=== PATIENT | female | born 1935 | race Caucasian/White ===

== ENCOUNTER 2016-08-05 10:25 | Inpatient (IN) | payer MEDICARE, OTHER ==
[2016-08-05] VITALS (8 sets, daily range): BP systolic 116–144; BP diastolic 59–75; PULSE 56–65; RESP 12–19; TEMP 97.7–98.8; O2SAT 95–98
[~2016-08-05] VITALS: Ht 157.5 cm; Wt 57.2 kg
[~2016-08-05 10:25] MED LIST: AMLO10 PO; ARIC5TAB PO; ASPI325T PO; DONE5TAB7 PO; LIPI80TA PO; LORA-373 PO; LORA1TAB12 PO; LOSA100T PO; METF500 PO; PLAV75TA29 PO; REME15TA PO; SERO100T PO; ZOLO50TA PO
--- NOTE | 2016-08-05 10:46 | PD ---
HPI Chief Complaint: Fall Time Seen by Provider: 10:39 Travel History International Travel<30 days: No Contact w/Intl Traveler<30days: No Traveled to known affect area: No History of Present Illness HPI This is a 80-year-old female who has a history of dementia who was found by her snf staff on the floor at 3 AM. When they woke up this morning she had a large hematoma involving the left side of her face and was reporting a headache and swelling around her eye, constant, moderate severity. [facility] checked her blood sugar and it was 38. Patient was given an amp of D50 in route. She takes metformin and also gets Lantus in the evenings. She denies any other injuries. She is on Plavix. PFSH Past Medical History Arthritis: Yes Anxiety: Yes Depression: Yes Heart Rhythm Problems: No Cancer: No Cardiovascular Problems: No High Cholesterol: No Chemotherapy: No Chest Pain: No Congestive Heart Failure: No Diabetes: No Endocrine: No Genitourinary: No Headaches: Yes Immune Disorder: No Musculoskeletal: Yes (patient stated she sprained her left ankle at a fire drill at the facility ) Neurologic: No Psychiatric: Yes (Dementia with Agitation) Reproductive: No Respiratory: No Radiation Therapy: No Seizures: Yes Sickle Cell Disease: No Past Surgical History Abdominal Surgery: Yes Arteriovenous Shunt: No Cardiac Surgery: No Ear Surgery: No Endocrine Surgery: No Eye Surgery: No Genitourinary Surgery: No Gynecologic Surgery: No Insulin Pump: No Joint Replacement: No Oral Surgery: No Pacemaker: No Thoracic Surgery: No Social History Tobacco Use: No Substance Use: No Allergies-Medications (Allergen,Severity, Reaction): Coded Allergies: No Known Allergies (Unverified , 02/15/16) Reported Meds & Prescriptions Reported Meds & Active Scripts Active Glucophage (Metformin HCl) 500 Mg Tab 1,000 Mg PO BIDPC 30 Days Norvasc (Amlodipine Besylate) 10 Mg Tab 10 Mg PO DAILY 30 Days Zoloft (Sertraline HCl) 50 Mg Tab 50 Mg PO BID 14 Days Seroquel (Quetiapine Fumarate) 100 Mg Tab 50 Mg PO HS 14 Days Reported Prochlorperazine Maleate 10 Mg Tab 10 Mg PO Q6H PRN Tylenol Extra Strength (Acetaminophen) 500 Mg Tab 500 Mg PO QID Vitamin B-12 (Cyanocobalamin) 1,000 Mcg Tab 1,000 Mcg PO DAILY Lantus Inj (Insulin Glargine) 1,000 Unit/10 Ml Vial 35 Units SQ DAILY Atorvastatin (Atorvastatin Calcium) 20 Mg Tab 20 Mg PO HS Losartan (Losartan Potassium) 100 Mg Tab 100 Mg PO DAILY Lorazepam 0.5 Mg Tab 0.5 Mg PO BID Donepezil 5 Mg Tab 5 Mg PO HS Plavix (Clopidogrel Bisulfate) 75 Mg Tab 75 Mg PO DAILY Aspirin 325 Mg Tab 325 Mg PO DAILY Review of Systems Except as stated in HPI: all other systems reviewed are Neg Physical Exam Narrative GENERAL:Well appearing, no acute distress SKIN: Ecchymoses around the left eye HEAD: Hematoma involving the left forehead extending down to the supraorbital rim EYES: Pupils equal and round. No injection or drainage. ENT: Moist mucous membranes NECK: Trachea midline. No cervical spine tenderness. CARDIOVASCULAR: Regular rate and rhythm. No murmur appreciated. RESPIRATORY: Clear to auscultation. Breath sounds equal bilaterally. GASTROINTESTINAL: Abdomen soft, non-tender, nondistended. MUSCULOSKELETAL: No obvious deformities. NEUROLOGICAL: Awake and alert. No obvious cranial nerve deficits. No dysarthria or aphasia. PSYCHIATRIC: Appropriate mood and affect; insight and judgment normal. Data Data Last Documented VS Vital Signs Date Time Temp Pulse Resp B/P Pulse Ox O2 Delivery O2 Flow Rate FiO2 08/05/16 10:35 98.7 64 15 136/[address] Brain W/O Iv Contrast(Rout) (08/05/16 ) Complete Blood Count With Diff (08/05/16 10:44) Basic Metabolic Panel (Bmp) (08/05/16 10:44) Ct Facial Bones W/O Iv Cont (08/05/16 ) Ct Cerv Spine W/O Contrast (08/05/16 ) Admit Order (Ed Use Only) (08/05/16 12:49) Labs Laboratory Tests Test 08/05/16 10:30 White Blood Count 6.7 TH/MM3 Red Blood Count 4.06 MIL/MM3 Hemoglobin 12.6 GM/DL Hematocrit 36.9 % Mean Corpuscular Volume 91.0 FL Mean Corpuscular Hemoglobin 31.1 PG Mean Corpuscular Hemoglobin 34.1 % Concent Red Cell Distribution Width 14.0 % Platelet Count 168 TH/MM3 Mean Platelet Volume 8.7 FL Neutrophils (%) (Auto) 70.9 % Lymphocytes (%) (Auto) 22.8 % Monocytes (%) (Auto) 4.7 % Eosinophils (%) (Auto) 1.5 % Basophils (%) (Auto) 0.1 % Neutrophils # (Auto) 4.7 TH/MM3 Lymphocytes # (Auto) 1.5 TH/MM3 Monocytes # (Auto) 0.3 TH/MM3 Eosinophils # (Auto) 0.1 TH/MM3 Basophils # (Auto) 0.0 TH/MM3 CBC Comment DIFF FINAL Differential Comment Sodium Level 141 MEQ/L Potassium Level 3.7 MEQ/L Chloride Level 104 MEQ/L Carbon Dioxide Level 26.1 MEQ/L Anion Gap 11 MEQ/L Blood Urea Nitrogen 16 MG/DL Creatinine 0.85 MG/DL Estimat Glomerular Filtration 65 ML/MIN Rate Random Glucose 183 MG/DL Calcium Level 8.7 MG/DL MDM Medical Decision Making Medical Screen Exam Complete: Yes Emergency Medical Condition: Yes Interpretation(s) Afebrile, no tachycardia, normotensive No leukocytosis Electrolytes are reassuring Last [address] 08/05/16 Signed Impressions: Service Date/Time: Friday, August 05, 2016 11:26 - CONCLUSION: 1. Left temporal and frontal soft tissue hematoma. No fractures. Toan Jaime Jr., MD Head CT 08/05/16 Signed Impressions: Service Date/Time: Friday, August 05, 2016 11:24 - CONCLUSION: 1. Focal acute, probable posttraumatic, subarachnoid hemorrhage within the right frontal sulci without midline shift. 2. 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 3. Mild periventricular and subcortical white matter small vessel ischemic changes bilaterally. 4. Old right basal ganglia lacunar infarct. 5. Large left frontal subgaleal hematoma. Tyler Evans MD Cervical Spine CT 08/05/16 Signed Impressions: Service Date/Time: Friday, August 05, 2016 12:10 - CONCLUSION: 1. No acute abnormality. 2. Degenerative changes as detailed above. 3. Carotid artery atherosclerotic calcifications. Toan Jaime Jr., MD Differential Diagnosis Subarachnoid hemorrhage, subdural hematoma, epidural hematoma, cervical spine fracture, concussion, orbital floor fracture Narrative Course This is a 80-year-old female who presents to the emergency department having been found on the floor at her snf with a significant hematoma around her left eye. Patient is on Plavix and aspirin. She was placed on a monitor and an IV was established. Labs are obtained which are reassuring. CT the head demonstrates a small area of subarachnoid hemorrhage which is likely traumatic. She appears to be at her neurologic baseline. She did drop her blood sugar on route to the emergency department and was given D50 prior to arrival. She did not drop her blood sugar any further in the ER. I spoke to Dr. Estrada who wanted the patient admitted to the picker machine operator. Director [employer] requested the patient be admitted to the trauma service. Patient will be admitted for further management. Critical Care Narrative Aggregate critical care time was 35 minutes. Time to perform other separately billable procedures was not included in the critical care time. My time did not include minutes spent treating any other patients simultaneously or on activities that did not directly contribute to the patient's treatment. The services I provided to this patient were to treat and/or prevent clinically significant deterioration that could result in: Disability, I provided critical care services requiring my management, as noted below: Chart data review, documentation time, medication orders and management, vital sign assessments/reviewing monitor data, ordering and reviewing lab tests, ordering and interpreting/reviewing x-rays and diagnostic studies, care of the patient and discussion of the patient with the admitting physicians. Physician Communication Physician Communication Discussed with Dr. Holt, and Dr. Estrada Diagnosis Primary Impression: Subarachnoid hemorrhage Admitting Information Admitting Physician Requests: Admit Anahy Arita MD August 05, 2016 10:46
[2016-08-05 11:07] LABS: AUTOMATED NEUTROPHIL # 4.7 TH/MM3 (1.8-7.7); BASOPHIL % 0.1 % (0.0-2.0); EOSINOPHIL # 0.1 TH/MM3 (0-0.4); EOSINOPHIL % 1.5 % (0.0-4.0); HEMATOCRIT 36.9 % (35.0-46.0); HEMO FLAGS DIFF FINAL; LYMPH % 22.8 % (9.0-44.0); LYMPHOCYTE # 1.5 TH/MM3 (1.0-4.8); MEAN CORPUSCULAR HEMOGLOBIN 31.1 PG (27.0-34.0); MEAN CORPUSCULAR HGB CONC 34.1 % (32.0-36.0); MONO % 4.7 % (0.0-8.0); NEUT % 70.9 % (16.0-70.0); PLATELET COUNT 168 TH/MM3 (150-450); RED BLOOD COUNT 4.06 MIL/MM3 (4.00-5.30); WHITE BLOOD COUNT 6.7 TH/MM3 (4.0-11.0)
[2016-08-05 11:32] LABS: BICARBONATE 26.1 MEQ/L (21.0-32.0)
[2016-08-05 11:43] LABS: POTASSIUM 3.7 MEQ/L (3.5-5.1)
--- NOTE | 2016-08-05 11:56 | RADRPT ---
EXAM DATE/TIME: 08/05/2016 11:24 [facility] COMPARISON: CT BRAIN W/O CONTRAST, March 04, 2016, 8:30. INDICATIONS : Trauma, fall, brusing around left eye. RADIATION DOSE: 46.13 CTDIvol (mGy) MEDICAL HISTORY : Hypertension. Diabetes mellitus type 2. Dementia. SURGICAL HISTORY : ENCOUNTER: Initial ACUITY: 1 day PAIN SCALE: 5/10 LOCATION: cranial TECHNIQUE: Multiple contiguous axial images were obtained of the head. Using automated exposure control and adj ustment of the mA and/or kV according to patient size, radiation dose was kept as low as reasonably a chievable to obtain optimal diagnostic quality images. FINDINGS: There is evidence of a small amount of focal acute subarachnoid hemorrhage within the right frontal s ulci. Old infarcts are noted within the bilateral parietal lobes, left temporal lobe and left cerebel lar hemisphere and are stable. There is no midline shift. There is a left frontal subgaleal hematoma. Mild periventricular and subcortical white matter small vessel ischemic changes are noted bilaterall y. There is an old lacunar infarct within the right basal ganglia. No skull fracture is noted. CONCLUSION: 1. Focal acute, probable posttraumatic, subarachnoid hemorrhage within the right frontal sulci withou t midline shift. 2. Old infarcts involving the bilateral parietal lobes, left temporal lobe and left cerebellar hemisp here are stable. 3. Mild periventricular and subcortical white matter small vessel ischemic changes bilaterally. 4. Old right basal ganglia lacunar infarct. 5. Large left frontal subgaleal hematoma. Tyler Evans MD on August 05, 2016 at 11:44 Board Certified Radiologist. This report was verified electronically.
--- NOTE | 2016-08-05 12:09 | RADRPT ---
EXAM DATE/TIME: 08/05/2016 11:26 [facility] COMPARISON: No previous studies available for comparison. INDICATIONS : Trauma, fall, bruising around left eye. RADIATION DOSE: 36.57 CTDIvol (mGy) MEDICAL HISTORY : Hypertension. Dementia. Diabetes mellitus type 2. SURGICAL HISTORY : ENCOUNTER: Initial ACUITY: 1 day PAIN SCORE: 5/10 LOCATION: facial TECHNIQUE: Volumetric scanning of the facial bones was performed. Using automated exposure control and adjustme nt of the mA and/or kV according to patient size, radiation dose was kept as low as reasonably achiev able to obtain optimal diagnostic quality images. FINDINGS: Left temporal and frontal soft tissue hematoma is observed. 2 tiny punctate radiopaque densities are seen in the superficial skin or on the skin surface adjacent to the left lateral orbital rim along it s superior aspect. The globe is intact. Intraconal fat is clean. No fractures or dislocations. A smal l mucous retention cyst involving the floor of the maxillary sinuses bilaterally. No air-fluid levels . CONCLUSION: 1. Left temporal and frontal soft tissue hematoma. No fractures. Toan Jaime Jr., MD on August 05, 2016 at 12:04 Board Certified Radiologist. This report was verified electronically.
[2016-08-05] MEDS ORDERED: PROC10TA PO (12:36)
[2016-08-05] MEDS ORDERED: ATOR20TA15 PO (12:36)
[2016-08-05] MEDS ORDERED: ACET-703 PO (12:36)
[2016-08-05] MEDS ORDERED: VITA10002 PO (12:36)
[2016-08-05] MEDS ORDERED: LANTUS2P SQ (12:36)
--- NOTE | 2016-08-05 12:45 | RADRPT ---
EXAM DATE/TIME: 08/05/2016 12:10 [facility] COMPARISON: No previous studies available for comparison. INDICATIONS : Fall evaluate for fracture. RADIATION DOSE: 19.90 CTDIvol (mGy) MEDICAL HISTORY : Diabetes mellitus type 2. Hypertension. Dementia. SURGICAL HISTORY : None. ENCOUNTER: Initial ACUITY: 1 day PAIN SCALE: 5/10 LOCATION: neck TECHNIQUE: Volumetric scanning of the cervical spine was performed. Multiplanar reconstructions in the sagittal, coronal and oblique axial planes were performed. Using automated exposure control and adjustment o f the mA and/or kV according to patient size, radiation dose was kept as low as reasonably achievable to obtain optimal diagnostic quality images. FINDINGS: VERTEBRAE: Normal vertebral body height. ALIGNMENT: No evidence of subluxation. C2-C3: The bony spinal canal is normal in size. No evidence of disc bulge or herniation. The neural forami na are bilaterally patent. C3-C4: A left paracentral disc bulge. This abuts the cord. No central canal stenosis. Neural foramina are pa tent bilaterally. C4-C5: A broad-based disc osteophyte complex flattens the ventral portion of the cord. There is narrowing of the lateral recesses bilaterally. Bony uncovertebral hypertrophy narrows both neural foramen. C5-C6: A broad-based disc osteophyte complex flattens the ventral portion of the cord. There is narrowing of the lateral recesses bilaterally. Bony uncovertebral hypertrophy narrows both neural foramen. C6-C7: The bony spinal canal is normal in size. No evidence of disc bulge or herniation. The neural forami na are bilaterally patent. C7-T1: The bony spinal canal is normal in size. No evidence of disc bulge or herniation. The neural forami na are bilaterally patent. Calcified plaque involving the carotid arteries bilaterally. The right lobe of the thyroid is heterog eneous. CONCLUSION: 1. No acute abnormality. 2. Degenerative changes as detailed above. 3. Carotid artery atherosclerotic calcifications. Toan Jaime Jr., MD on August 05, 2016 at 12:40 Board Certified Radiologist. This report was verified electronically.
[2016-08-05] MEDS: SODIUM CHLOR 0.9% 1000 ML INJ 1,000 ML IV SCH ×2 (13:56→22:45)
[2016-08-05] MEDS ORDERED: oxyCODONE/ACETAMINOPHEN 5 MG/325 MG TAB PO PRN (14:00)
[2016-08-05] MEDS ORDERED: SODIUM CHLORIDE 0.9% FLUSH 10 ML FLUSH IV FLUSH PRN (14:00)
[2016-08-05] MEDS ORDERED: NALOXONE HCL 0.4 MG/ML AMP IV PRN (14:00)
[2016-08-05] MEDS ORDERED: Post-op Orders (for Pharmacy) MISC XX ONE (14:00)
[2016-08-05] MEDS: PANTOPRAZOLE SOD 40 MG DELAYED RELEASE TAB PO SCH (14:00)
[2016-08-05] MEDS ORDERED: PROCHLORPERAZINE MALEATE 10 MG TAB PO PRN (14:15)
--- NOTE | 2016-08-05 14:40 | MH ---
cc: IKER ALBERT MD DATE OF ADMISSION: 08/05/2016 ADMITTING DIAGNOSIS Fall from a standing position, subarachnoid and intraparenchymal right frontal hemorrhage, loss of consciousness, syncope. HISTORY OF PRESENT DISEASE This 80-year-old female with a history of dementia fell in the longterm around 3:00 in the morning. She was found to have a large hematoma of the left frontotemporal scalp and face. She was brought to our institution as an ER evaluation. At the time of arrival the patient is awake and alert and pleasantly demented. In addition, the patient had hypoglycemia which was immediately corrected. She has now been worked up and above-noted injuries found. The patient is being admitted to ICU to the trauma service. PAST MEDICAL HISTORY 1. Dementia. 2. Ankle sprain. 3. Arthritis. 4. Hypertension. 5. Hyperlipidemia. 6. Diabetes mellitus. PAST SURGICAL HISTORY The surgical history is unknown. MEDICATIONS Medications can be found in the record. SOCIAL HISTORY She is a resident of a longterm and she has neurocognitive deficit in the form of dementia. PHYSICAL EXAMINATION GENERAL: The physical examination reveals a pleasant 80-year-old lady appearing somewhat younger than her actual age. HEENT: Normocephalic. Trauma to the head consisting of a fairly significant bump and swelling in the left frontotemporal area with some periocular suggillation and suffusion of blood. Periorbital swelling noted as well. Pupils equally reactive. Extraocular muscles intact. No hemotympanum. No Mejia's sign. No raccoon eyes. NECK: Bilateral carotid pulses and bilateral carotid bruits. No signs of trauma to the neck. CHEST: Bilateral breath sounds. HEART: Regular rhythm. ABDOMEN: Soft. Active bowel sounds. No rebound. No guarding. No masses. No signs of trauma to the chest or abdomen. BACK: Normal. No signs of trauma to the back. The patient has some kyphoscoliosis. PELVIS: Stable. EXTREMITIES: Appear to be within normal limits. No signs of deformities in four extremities. Good proximal and distal pulses. No signs of acute vascular deficit. NEUROLOGIC: The patient's Imperial Coma Scale is actually 15. She is awake and alert, however, she is demented and does not know where she is or what she is doing here. IMPRESSION AND RECOMMENDATIONS I reviewed the laboratory and diagnostic procedures. This lady has a left calvaria contusion and right subarachnoid and intraparenchymal frontal hemorrhage. This is clearly a traumatic injury. The patient will be admitted for observation to ICU. Neurosurgery is consulted for further care with her clinical indices. In addition in terms of patient's syncope a carotid ultrasound will be performed to see if this might have contributed to this condition. Thank you very much for the referral. The patient will be admitted to our service. Iker SARMIENTO/ELISHA /2:10 PM /2:27 PM
--- NOTE | 2016-08-05 15:56 | RADRPT ---
EXAM DATE/TIME: 08/05/2016 15:26 [facility] COMPARISON: No previous studies available for comparison. INDICATIONS : Left wrist pain after falling today. MEDICAL HISTORY : Diabetes mellitus type 2. Hypertension. Dementia. SURGICAL HISTORY : None. ENCOUNTER: Initial ACUITY: 1 day PAIN SCORE: 5/10 LOCATION: Left wrist. FINDINGS: 3 views left wrist reveal an acute obliquely oriented fracture involving the distal ulnar metadiaphys is. No induration or distraction. The distal radius is intact. 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 Soft tissue swelling seen. CONCLUSION: Distal ulnar fracture. Toan Jaime Jr., MD on August 05, 2016 at 15:51 Board Certified Radiologist. This report was verified electronically.
--- NOTE | 2016-08-05 16:42 | PD.CONS ---
HPI Service Critical Care Medicine Consult Requested By Dr. Gaines Reason for Consult Traumatic subarachnoid hemorrhage, subgaleal hematoma Severe hypoglycemia Primary Care Physician Unknown History of Present Illness Patient is a 80-year-old female with past medical history significant for dementia, type 2 diabetes, hypertension who was found on the floor in her [facility] about 3 AM this morning. She had a large hematoma of the left scalp. Patient was transferred to [place] emergency department for further evaluation, en route her blood glucose was 30, which improved with dextrose administration. CT of the head showed left frontal sulci subarachnoid hemorrhage, old bilateral infiltrates and a large subgaleal hemorrhage. I evaluated the patient in the ED, she is oriented to person and somewhat to place. No focal deficits. Her blood sugar rechecked after arrival in the ICU was 40. Patient is placed on hypoglycemia protocol will get D50 one amp followed by fluid D5 normal saline infusion and every hour Accu-Chek Review of Systems ROS Limitations: Other (Dementia limits review of system) Past Family Social History Allergies: Coded Allergies: No Known Allergies (Unverified , 02/15/16) Past Medical History Dementia Type 2 diabetes Arthritis Hypertension Hyperlipidemia Past Surgical History Unable to obtain surgical history due to patient's dementia Reported Medications Glucophage (Metformin HCl) 500 Mg Tab 1,000 Mg PO BIDPC 30 Days Norvasc (Amlodipine Besylate) 10 Mg Tab 10 Mg PO DAILY 30 Days Zoloft (Sertraline HCl) 50 Mg Tab 50 Mg PO BID 14 Days Seroquel (Quetiapine Fumarate) 100 Mg Tab 50 Mg PO HS 14 Days Prochlorperazine Maleate 10 Mg Tab 10 Mg PO Q6H PRN Tylenol Extra Strength (Acetaminophen) 500 Mg Tab 500 Mg PO QID Vitamin B-12 (Cyanocobalamin) 1,000 Mcg Tab 1,000 Mcg PO DAILY Lantus Inj (Insulin Glargine) 1,000 Unit/10 Ml Vial 35 Units SQ DAILY Atorvastatin (Atorvastatin Calcium) 20 Mg Tab 20 Mg PO HS Losartan (Losartan Potassium) 100 Mg Tab 100 Mg PO DAILY Lorazepam 0.5 Mg Tab 0.5 Mg PO BID Donepezil 5 Mg Tab 5 Mg PO HS Plavix (Clopidogrel Bisulfate) 75 Mg Tab 75 Mg PO DAILY Aspirin 325 Mg Tab 325 Mg PO DAILY Active Ordered Medications Reviewed Family History Unable to obtain Social History custodial resident with dementia. Per previous records no history of alcohol or tobacco use Physical Exam Vital Signs Vital Signs Date Time Temp Pulse Resp B/P Pulse Ox O2 Delivery O2 Flow Rate FiO2 08/05/16 15:38 60 18 139/63 98 Room Air 08/05/16 13:52 58 16 116/67 98 Room Air 08/05/16 10:35 98.7 64 15 136/59 96 Physical Exam GENERAL: Lying in the ER gurney. Pleasant HEAD: Hematoma involving the left forehead. EYES: Pupils equal and round. Large left periorbital hematoma ENT: Moist mucous membranes NECK: Trachea midline. No cervical spine tenderness. CARDIOVASCULAR: Regular rate and rhythm. No murmur RESPIRATORY: Clear to auscultation. Breath sounds equal bilaterally. GASTROINTESTINAL: Abdomen soft, non-tender, nondistended. MUSCULOSKELETAL: No obvious deformities. NEUROLOGICAL: Awake and alert. No focal deficits. Patient is oriented to person and place Laboratory Laboratory Tests Test 08/05/16 10:30 White Blood Count 6.7 Red Blood Count 4.06 Hemoglobin 12.6 Hematocrit 36.9 Mean Corpuscular Volume 91.0 Mean Corpuscular Hemoglobin 31.1 Mean Corpuscular Hemoglobin 34.1 Concent Red Cell Distribution Width 14.0 Platelet Count 168 Mean Platelet Volume 8.7 Neutrophils (%) (Auto) 70.9 Lymphocytes (%) (Auto) 22.8 Monocytes (%) (Auto) 4.7 Eosinophils (%) (Auto) 1.5 Basophils (%) (Auto) 0.1 Neutrophils # (Auto) 4.7 Lymphocytes # (Auto) 1.5 Monocytes # (Auto) 0.3 Eosinophils # (Auto) 0.1 Basophils # (Auto) 0.0 CBC Comment DIFF FINAL Differential Comment Sodium Level 141 Potassium Level 3.7 Chloride Level 104 Carbon Dioxide Level 26.1 Anion Gap 11 Blood Urea Nitrogen 16 Creatinine 0.85 Estimat Glomerular Filtration 65 Rate Random Glucose 183 Calcium Level 8.7 Result Diagram: 08/05/16 1030 08/05/[address] head shows traumatic subarachnoid hemorrhage right frontal sulci, multiple bilateral old infarcts, and a large left subgaleal hematoma Assessment and Plan Assessment and Plan ASSESSMENT: Traumatic subarachnoid hemorrhage, subgaleal hematoma Severe hypoglycemia Dementia Type 2 diabetes Arthritis Hypertension Hyperlipidemia PLAN: NEURO: -Minimize sedation. Follow-up CT scan in 24 hours -Neurosurgery Dr. Estrada. nonoperative management -Monitor for vasospasm clinically, no indication for serial TCD's -Avoid hypomagnesemia hyponatremia and hypoxia -Antiplatelet therapy on hold due to SAH -Target systolic blood pressure less than 150 RESP: -Nasal cannula oxygen -DuoNeb every 6 hours when necessary CV: -IV fluids D5 normal saline at 75 ml per hour due to hypoglycemia -Target systolic blood pressure less than 150 -Holding home antihypertensives and antiplatelet therapy GI: -NPO. IV Protonix : -Monitor renal function closely. ID: -Monitor for infection. Check UA HEME: -Monitor CBC, CMP, coags ENDO: -Started on hypoglycemia protocol -Hold all oral hypoglycemic and Insulin -Started on D5NS with q1hr accucheck PROPH: -Bilateral lower extremity SCDs/CHELSEY. IV Protonix, chemical DVT prophylaxis contraindicated at this time LINES: -Utilize peripheral IVs, central line if needed CC time 55 min Code Status Full Discussed Condition With Jessica Yuen MD August 05, 2016 16:42
[2016-08-05] MEDS ORDERED: INSULIN ASPART SUPPLEMENTAL SCALE SQ SCH (17:00)
[2016-08-05] MEDS ORDERED: hydrALAZINE HCL 20 MG/ML VIAL IV PUSH PRN (17:00)
[2016-08-05] MEDS ORDERED: DEXTROSE 50% IN WATER 50 ML SYRINGE ONE (17:23)
[2016-08-05] MEDS ORDERED: DEXTROSE 50% IN WATER 50 ML VIAL(D50) IV PUSH ONE (17:30)
[2016-08-05] MEDS ORDERED: RESP: ALBUTEROL 2.5 MG/IPRATROPIUM 0.5 MG NEB (PRN) NEB (17:30)
[2016-08-05] MEDS: DEXT 5%-NACL 0.9% 1000 ML INJ 1,000 ML IV SCH (19:07)
--- NOTE | 2016-08-05 20:40 | MB ---
cc: LIZ STAPLES DATE OF CONSULTATION 08/05/2016 REASON FOR CONSULTATION Traumatic brain injury. HISTORY OF PRESENT ILLNESS This is a 80-year-old lady with dementia who resides in a snf. Apparently, she fell at the snf early this morning and was found to have a large periorbital and subgaleal hematoma, ecchymosis and swelling. She was also very hypoglycemic with initial blood sugars noted at 38 and received D50. She does have a history of diabetes also. The trauma workup included CT scan of the head which reveals a small right frontal lobe contusion as well as some overlying convexity traumatic subarachnoid hemorrhage. There is no mass effect or midline shift noted. There are old infarcts involving the left cerebellar hemisphere, right left frontal lobe, left temporal lobe and right frontal lobe. CT of the cervical spine does not reveal any fractures, although atherosclerotic carotid calcifications are noted. Maxillofacial CT scan also does not reveal any fractures. She does have a distal left ulna fracture noted on the wrist x-ray. She is awake and the main complaint is left wrist pain but no other specific complaints. PAST MEDICAL HISTORY 1. Dementia, 2. Diabetes mellitus, 3. Hypertension, 4. Hyperlipidemia. MEDICATIONS 1. Plavix. 2. Aspirin. 3. Norvasc. 4. Atorvastatin, 5. Donepezil. 6. Insulin. 7. Lorazepam. 8. Losartan. 9. Metformin. 10. Seroquel. 11. Zoloft 12. Prochlorperazine malleate p.r.n. 13. Tylenol p.r.n. ALLERGIES NO KNOWN DRUG ALLERGIES. SOCIAL HISTORY She is a , resides in snf, is a former smoker. No alcohol use REVIEW OF SYSTEMS Very limited given the patient's dementia but complains of left wrist pain. She does not relate any other pertinent positives. LABORATORY FINDINGS White blood cell count 6.7, hemoglobin 12.6, platelet count 168. Sodium 141, potassium 3.7, BUN 16, creatinine 0.85, glucose 183. PHYSICAL EXAMINATION VITAL SIGNS: Temperature 98.7, pulse is 60, respiratory rate 18, blood pressure 139/63, oxygen saturation 98% on room air. HEAD: - She has extensive left periorbital ecchymosis and swelling along with subgaleal hematoma. NECK: Supple with no guarding or rigidity. Good range of motion. CHEST: Clear bilaterally HEART: Regular rate and rhythm, normal S1, S2. ABDOMEN: Soft, nontender. EXTREMITIES: No cyanosis, but she does have some edema in the left wrist and pain with movement but no deformities in the lower extremities or right upper extremity. NEUROLOGIC: She is awake, alert. She relates that she is in the hospital but does not know the exact name of the hospital or the date. Pupils are equal, reactive. Extraocular movements are intact. Face is symmetric. Tongue is midline. She moves all four extremities with good strength other than some limitation due to left wrist pain. She also relates that she has weakness in the left side, likely from her previous stroke. Equivocal Babinski. Appreciates light touch sensation bilaterally. Speech is fluent. IMPRESSION 1. 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 2. Multiple areas of stroke which are chronic. 3. Left distal ulnar fracture. 4. Dementia. 5. Hypertension 6. Diabetes mellitus. PLAN The patient will be monitored closely in the intensive care unit. At this point, conservative management and symptomatic treatment for mild traumatic brain injury will be undertaken as no intervention is required. Recommend increasing her diet and activity status as tolerated with physical therapy safety evaluation. Also recommend orthopedic consultation for her left distal ulnar fracture. Treatment of her medical comorbidities as per the qualitative executive researcher. MD EMILIE Monsalve/ /6:05 PM /8:29 PM
--- NOTE | 2016-08-05 21:06 | MB ---
cc: JENNIFER HAN MD DATE OF CONSULTATION 08/05/16 REASON FOR CONSULTATION Left ulnar fracture. HISTORY The patient is a 80-year-old female which, according to the chart, the patient has significant history of dementia, although when I talk to her she did not seem to have significant signs of dementia. She has a history also of type 2 diabetes, hypertension. The patient was found on the floor early in the morning. She was found have a hematoma about the scalp. She was transferred to [facility] with a very low blood sugar. The patient was found to have a subarachnoid hemorrhage. The patient was admitted to the hospital. The patient did have x-rays which revealed that she has a distal ulnar fracture. REVIEW OF SYSTEMS 12 point review of systems is negative except as noted in History of Present Illness ALLERGIES NO KNOWN DRUG ALLERGIES PAST MEDICAL HISTORY As above. PAST SURGICAL HISTORY See the chart. MEDICATIONS See the chart. FAMILY HISTORY Noncontributory. SOCIAL HISTORY The patient lives in a nursing facility. PHYSICAL EXAMINATION VITAL SIGNS: Temperature 97.7, pulse 56, respirations 19, blood pressure 141/67. GENERAL: She is awake, alert and oriented. She seems to have normal insight, affect and judgment. HEENT: She does have quite a significant amount of bruising and swelling about the left orbital region. Extraocular muscles are intact. Oropharynx is moist. NECK: nontender. HEART: Regular rate and rhythm. LUNGS: Clear to auscultation bilaterally. ABDOMEN: Soft, nontender, nondistended. BACK: No CVA tenderness. EXTREMITIES: He left upper extremity currently has an IV in place. Her arm has a dressing around the IV. She moves the fingers well. She has tenderness about the distal ulnar to normal sensation distally. Examination of the bilateral lower extremities at the knee and the ankle shows no tenderness. Normal alignment. Actually moves her toes well. IMAGING STUDIES I reviewed the results of the x-rays and the report myself. It does show significant degenerative change about the base of the thumb. It shows a distal ulnar shaft fracture which is mildly displaced without significant angulation. LABORATORY DATA Laboratory studies reviewed shows a hematocrit of 36.9. Chemistries - creatinine 0.85. IMPRESSION 1. Subarachnoid hemorrhage 2. History of dementia. 3. Left upper extremity mildly displaced distal ulnar shaft fracture. DECISION MAKING We discussed the diagnosis in detail. I do recommend nonoperative management for this condition. I have talked to the nurse and asked them to move the IV to the other arm. I put in a Stat order to the board certified orthodontist to apply a sugar-tong splint well-padded. The patient will follow up in the office in one week for repeat x-rays of the left wrist, three views. If there is further displacement or angulation, it is possible surgical management could be recommended. All questions have been answered. MD AGUSTÍN Gonzalez/ /7:19 PM /8:53 PM
[2016-08-05] MEDS: LORazepam 0.5 MG TAB PO SCH (22:45)
[2016-08-05] MEDS: DOCUSATE SODIUM 100 MG CAP PO SCH (22:45)
[2016-08-05] MEDS: SODIUM CHLORIDE 0.9% FLUSH 10 ML FLUSH IV FLUSH SCH (22:45)
[2016-08-05] MEDS: LOSARTAN 50 MG TAB PO SCH (22:45)
[2016-08-06] VITALS (10 sets, daily range): BP systolic 152–184; BP diastolic 67–93; PULSE 50–92; RESP 13–21; TEMP 96.5–100.4; O2SAT 93–99
[2016-08-06 04:31] LABS: AUTOMATED NEUTROPHIL # 3.2 TH/MM3 (1.8-7.7); BASOPHIL % 0.2 % (0.0-2.0); EOSINOPHIL # 0.2 TH/MM3 (0-0.4); EOSINOPHIL % 3.2 % (0.0-4.0); HEMATOCRIT 36.7 % (35.0-46.0); HEMO FLAGS DIFF FINAL; LYMPH % 36.6 % (9.0-44.0); LYMPHOCYTE # 2.2 TH/MM3 (1.0-4.8); MEAN CELL VOLUME 90.2 FL (80.0-100.0); MEAN CORPUSCULAR HEMOGLOBIN 30.6 PG (27.0-34.0); MEAN CORPUSCULAR HGB CONC 33.9 % (32.0-36.0); MONO % 7.5 % (0.0-8.0); NEUT % 52.5 % (16.0-70.0); PLATELET COUNT 156 TH/MM3 (150-450); RED BLOOD COUNT 4.06 MIL/MM3 (4.00-5.30); RED CELL DISTRIBUTION WIDTH 13.9 % (11.6-17.2); WHITE BLOOD COUNT 6.1 TH/MM3 (4.0-11.0)
[2016-08-06 04:54] LABS: BICARBONATE 26.9 MEQ/L (21.0-32.0); POTASSIUM 3.8 MEQ/L (3.5-5.1)
[2016-08-06] MEDS: DEXT 5%-NACL 0.9% 1000 ML INJ 1,000 ML IV SCH ×2 (06:52→20:40)
[2016-08-06] MEDS: LORazepam 0.5 MG TAB PO SCH ×2 (08:15→22:20)
[2016-08-06] MEDS: DOCUSATE SODIUM 100 MG CAP PO SCH ×2 (08:15→20:25)
[2016-08-06] MEDS: SODIUM CHLORIDE 0.9% FLUSH 10 ML FLUSH IV FLUSH SCH ×2 (08:15→22:20)
[2016-08-06] MEDS: LOSARTAN 50 MG TAB PO SCH ×3 (08:15→22:20)
[2016-08-06] MEDS ORDERED: PNEUMOCOCCAL POLYVALENT INJ 25 MCG/0.5 ML SYR IM ONE (09:00)
--- NOTE | 2016-08-06 09:13 | EKG ---
Date Performed: 08/05/2016 Time Performed: 14:16:58 PTAGE: 80 years EKG: SINUS BRADYCARDIA MARKED RIGHT AXIS DEVIATION RIGHT BUNDLE BRANCH BLOCK ABNORMAL ECG PREVIOUS TRACING : 02/17/2016 19.45 DOCTOR: Salas Carmona Interpretating Date/Time 08/06/2016 09:11:43
--- NOTE | 2016-08-06 09:25 | HHI.NSPN ---
(Kevon Milian) History Chief Complaint: Mild TBI. Pt with no complaints. (Kevon Milian) Interval History This is a 80-year-old lady with dementia who resides in a fdc. Apparently, she fell at the fdc early this morning and was found to have a large periorbital and subgaleal hematoma, ecchymosis and swelling. She was also very hypoglycemic with initial blood sugars noted at 38 and received D50. She does have a history of diabetes also. The trauma workup included CT scan of the head which reveals a small right frontal lobe contusion as well as some overlying convexity traumatic subarachnoid hemorrhage. There is no mass effect or midline shift noted. There are old infarcts involving the left cerebellar hemisphere, right left frontal lobe, left temporal lobe and right frontal lobe. CT of the cervical spine does not reveal any fractures, although atherosclerotic carotid calcifications are noted. Maxillofacial CT scan also does not reveal any fractures. She does have a distal left ulna fracture noted on the wrist x-ray. She is awake and the main complaint is left wrist pain but no other specific complaints. 08/06/16: Pt awake and alert. Denies headache. No nausea or vomiting. Follows commands well. Speech clear and appropriate. (Kevon Milian) Review of Systems General: Negative for: fever, chills, insomnia Respiratory: Negative for: shortness of breath, cough, sputum Cardiovascular: Negative for: chest pain Gastrointestinal: Negative for: nausea, vomitting, diarrhea, constipation ( Kevon Milian) Exam Results Vital Signs Date Time Temp Pulse Resp B/P Pulse Ox O2 Delivery O2 Flow Rate FiO2 08/06/16 07:00 95 Room Air 08/06/16 06:00 50 08/06/16 04:00 98.4 17 155/71 08/05/16 21:12 21 Intake and Output 08/05/16 08/05/16 08/06/16 08:00 16:00 00:00 Intake Total 990 ml Balance 990 ml (Kevon Milian) Physical Examination Resp: CTA bilaterally Heart: NSR no murmurs Abd: Soft positive bs Skin: Left forehead soft tissue swelling and left periorbital ecchymosis. Muscle: Moves all 4 extremities. Left forearm in splint and bandaged. Neuro: Pt awake and alert. Follows commands well. Speech clear and appropriate. Pupils 3mm bilaterally. (Kevon Milian) Lab, Micro, Other Results Last Impressions Wrist X-Ray 08/05/16 Signed Impressions: Service Date/Time: Friday, August 05, 2016 15:26 - CONCLUSION: Distal ulnar fracture. Toan Jaime Jr., MD Maxillofacial CT 08/05/16 Signed Impressions: Service Date/Time: Friday, August 05, 2016 11:26 - CONCLUSION: 1. Left temporal and frontal soft tissue hematoma. No fractures. Toan Jaime Jr., MD Head CT 08/05/16 Signed Impressions: Service Date/Time: Friday, August 05, 2016 11:24 - CONCLUSION: 1. Focal acute, probable posttraumatic, subarachnoid hemorrhage within the right frontal sulci without midline shift. 2. 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 3. Mild periventricular and subcortical white matter small vessel ischemic changes bilaterally. 4. Old right basal ganglia lacunar infarct. 5. Large left frontal subgaleal hematoma. Tyler Evans MD Cervical Spine CT 08/05/16 Signed Impressions: Service Date/Time: Friday, August 05, 2016 12:10 - CONCLUSION: 1. No acute abnormality. 2. Degenerative changes as detailed above. 3. Carotid artery atherosclerotic calcifications. Toan Jaime Jr., MD Laboratory Tests Test 08/05/16 08/05/16 08/06/16 10:30 18:55 03:38 White Blood Count 6.7 TH/MM3 6.1 TH/MM3 Red Blood Count 4.06 MIL/MM3 4.06 MIL/MM3 Hemoglobin 12.6 GM/DL 12.4 GM/DL Hematocrit 36.9 % 36.7 % Mean Corpuscular Volume 91.0 FL 90.2 FL Mean Corpuscular Hemoglobin 31.1 PG 30.6 PG Mean Corpuscular Hemoglobin 34.1 % 33.9 % Concent Red Cell Distribution Width 14.0 % 13.9 % Platelet Count 168 TH/MM3 156 TH/MM3 Mean Platelet Volume 8.7 FL 8.8 FL Neutrophils (%) (Auto) 70.9 % 52.5 % Lymphocytes (%) (Auto) 22.8 % 36.6 % Monocytes (%) (Auto) 4.7 % 7.5 % Eosinophils (%) (Auto) 1.5 % 3.2 % Basophils (%) (Auto) 0.1 % 0.2 % Neutrophils # (Auto) 4.7 TH/MM3 3.2 TH/MM3 Lymphocytes # (Auto) 1.5 TH/MM3 2.2 TH/MM3 Monocytes # (Auto) 0.3 TH/MM3 0.5 TH/MM3 Eosinophils # (Auto) 0.1 TH/MM3 0.2 TH/MM3 Basophils # (Auto) 0.0 TH/MM3 0.0 TH/MM3 CBC Comment DIFF FINAL DIFF FINAL Differential Comment Sodium Level 141 MEQ/L 141 MEQ/L Potassium Level 3.7 MEQ/L 3.8 MEQ/L Chloride Level 104 MEQ/L 107 MEQ/L Carbon Dioxide Level 26.1 MEQ/L 26.9 MEQ/L Anion Gap 11 MEQ/L 7 MEQ/L Blood Urea Nitrogen 16 MG/DL 11 MG/DL Creatinine 0.85 MG/DL 0.69 MG/DL Estimat Glomerular Filtration 65 ML/MIN 82 ML/MIN Rate Random Glucose 183 MG/DL 95 MG/DL Calcium Level 8.7 MG/DL 8.6 MG/DL Nasal Screen MRSA (PCR) MRSA NOT DETECTED 08/05/16 08/05/16 08/06/16 15:00 23:00 07:00 Intake Total 990 ml 650 ml Balance 990 ml 650 ml Intake Oral 240 ml 60 ml IV Total 750 ml 590 ml # Voids 2 1 (Kevon Milian) Medical Decision Making Impression and Plan A: 80 y/o FM with mild traumatic brain injury with right frontal small contusions along with traumatic subarachnoid hemorrhage. 2. Multiple areas of stroke which are chronic. 3. Left distal ulnar fracture. 4. Dementia. 5. Hypertension 6. Diabetes mellitus. PLAN Continue to monitor neuro exam, doing well. Advance activity (Kevon Milian) Attending Statement The exam, history, and the medical decision-making described in the above note were completed with the assistance of the mid-level provider. I reviewed and agree with the findings presented. I attest that I had a [id number] encounter with the patient on the same day, and personally performed and documented my assessment and findings in the medical record. Awake and alert with no complaints. Request discharged back to fdc. Stable from a neurologic standpoint to transfer to floor. Out of bed with physical therapy as tolerated. (Hardik Estrada MD) Kevon Milian August 06, 2016 09:25 Hardik Estrada MD August 06, 2016 17:32
[2016-08-06] MEDS ORDERED: PROCHLORPERAZINE MALEATE 10 MG TAB PO PRN (10:00)
--- NOTE | 2016-08-06 12:51 | RADRPT ---
EXAM DATE/TIME: 08/06/2016 09:57 [place] COMPARISON: No previous studies available for comparison. INDICATIONS : Syncope. MEDICAL HISTORY : Dementia. Arthritis. Seizures. HTN. Diabetes. Depression. Anxiety. Anticoagulant therapy, Plavix. SURGICAL HISTORY : Orthopedic. Abdominal. ENCOUNTER: Initial ACUITY: 2 days PAIN SCORE: 0/10 LOCATION: Bilateral neck PEAK SYSTOLIC VELOCITIES (cm/sec): ICA/CCA RATIO: Right: 0.8 Left: 1.0 ICA: Right: 47 Left: 66 CCA: Right: 61 Left: 65 ECA: Right: 79 Left: 119 VERTEBRAL: Right: 55 antegrade Left: 116 antegrade Elevated flow velocities and ICA/CCA ratios have been found to correlate with increased degrees of vessel stenosis, calculated as percentage of diameter relative to a normal segment of distal ICA/CCA FINDINGS: RIGHT CAROTID: Patchy calcific plaquing. No significant stenosis is visualized. The waveforms are within normal rinaldi its. LEFT CAROTID: Patchy calcific plaquing. No significant stenosis is visualized. The waveforms are within normal rinaldi its. VERTEBRAL ARTERIES: Antegrade flow is seen in both vertebral arteries. MISCELLANEOUS: None. CONCLUSION: No evidence of flow-limiting carotid stenosis. Jonathon Mckenzie MD on August 06, 2016 at 12:47 Board Certified Radiologist. This report was verified electronically.
--- NOTE | 2016-08-06 13:18 | HHI.CCPN ---
Subjective Brief History KENAITZE: This is a 80-year-old female who sustained a fall. She was found on the floor of her care home. She had a scalp hematoma, and PEG M equals 30 PMHx: Dementia, diabetes, HTN. INJURIES: Left scalp hematoma Right frontal SAH *Several old infarcts Left distal ulnar fracture (non-op) Consults: Neurosurgery. Orthopedics. 24 Hour Review/Hospital Course 08/06/2016 PTD: 1 Patient awake, alert, and appropriate. We will resume all appropriate home medications. Plan for transferred to the [facility] floor for continued care and management. Objective Vital Signs Date Time Temp Pulse Resp B/P Pulse Ox O2 Delivery O2 Flow Rate FiO2 08/06/16 12:00 98.2 62 13 164/67 99 08/06/16 07:00 Room Air 08/05/16 21:12 21 Intake and Output 08/05/16 08/05/16 08/06/16 08:00 16:00 00:00 Intake Total 990 ml Balance 990 ml Result Diagram: 08/06/16 0338 08/06/16 0338 Imaging Last 24 hours Impressions Carotid Artery Ultrasound 08/06/16 0000 Signed Impressions: Service Date/Time: Saturday, August 06, 2016 09:57 - CONCLUSION: No evidence of flow-limiting carotid stenosis. Jonathon Mckenzie MD Objective Remarks GENERAL: This is a 80-year-old female sitting up in bed. SKIN: Warm and dry. HEAD: Normocephalic. EYES: Left eye ecchymosis and swelling. ENT: No nasal bleeding or discharge. Mucous membranes pink and moist. NECK: Trachea midline. No JVD. CARDIOVASCULAR: Regular rate and rhythm. RESPIRATORY: No accessory muscle use. Lungs are clear to auscultation. Breath sounds equal bilaterally. No distress or dyspnea. GASTROINTESTINAL: BS + x 4 quads. Abdomen soft, non-tender, nondistended. MUSCULOSKELETAL: Extremities without cyanosis, or edema. + peripheral pulses x 4 extremities. Warm with good capillary refill and sensation. MAEW. NEUROLOGICAL: Awake and alert. Normal speech and pattern. Urinary Catheter Assessment Urinary Catheter: No Vascular Central Line Catheter Vascular Central Line Catheter: No Assessment and Plan Assessment: (1) Dementia ICD Code: F03.90 Status: Acute (2) Subarachnoid hemorrhage ICD Code: I60.9 Status: Acute Plan KENAITZE: This is a 80-year-old female sustained a fall in the care home. PMHx: Dementia, diabetes, HTN. INJURIES: Left scalp hematoma Right frontal SAH *Several old infarcts Left distal ulnar fracture (non-op) Consults: Neurosurgery. Orthopedics. Diet: Regular diet. Tolerating po diet. Encourage good po intake with each meal. Pulmonary: Encourage good pulmonary toileting. IS at bedside and pt encouraged to use. Rationale for use explained to patient, and verbalized understanding. Restarted home medications. PAIN Management: Percocet po. Activity: OOB. Pt and OT ordered. GI prophylaxis: Protonix po Bowel regimen: Colace and MOM. LBM: 0 DVT prophylaxis: Mechanical VTE with SCDs. Chemical management TBD. DC Planning: Case management consulted for assistance with final discharge disposition. Emotional support provided to patient and family at bedside and plan of care discussed. Discussed with RN at bedside on morning rounds . Patient is hemodynamically stable in the ICU, therefore she can be transferred and further managed on the med/surg floor. Brie Go August 06, 2016 13:18
[2016-08-06] MEDS: PANTOPRAZOLE SOD 40 MG DELAYED RELEASE TAB PO SCH (14:50)
--- NOTE | 2016-08-06 16:09 | PD.ORT.PN ---
Subjective Subjective Remarks The patient has signs of dementia today and is confused. no new numbness or tingling of fingers. Objective Vitals Vital Signs Date Time Temp Pulse Resp B/P Pulse Ox O2 Delivery O2 Flow Rate FiO2 08/06/16 14:00 84 08/06/16 12:00 98.2 62 13 164/67 99 08/06/16 12:00 84 08/06/16 10:00 92 08/06/16 08:00 58 08/06/16 08:00 98.3 58 21 152/93 95 08/06/16 07:00 95 Room Air 08/06/16 06:00 50 08/06/16 04:00 98.4 55 17 155/71 94 08/06/16 04:00 55 08/06/16 00:00 55 08/06/16 00:00 100.4 55 14 159/72 94 08/05/16 22:00 56 08/05/16 21:12 95 21 08/05/16 20:00 57 08/05/16 20:00 98.8 57 12 144/75 96 08/05/16 19:00 97 Room Air 08/05/16 18:00 65 08/05/16 16:35 56 08/05/16 16:35 97.7 56 19 141/67 97 I/O 08/05/16 08/05/16 08/05/16 08/06/16 08/06/16 08/06/16 07:00 15:00 23:00 07:00 15:00 23:00 Intake Total 990 ml 650 ml 518 ml Balance 990 ml 650 ml 518 ml Intake Oral 240 ml 60 ml 420 ml IV Total 750 ml 590 ml 98 ml # Voids 2 1 2 # Bowel Movements 1 Result Diagram: 08/06/16 0338 08/06/16 0338 Imaging Last 24 hours Impressions Carotid Artery Ultrasound 08/06/16 0000 Signed Impressions: Service Date/Time: Saturday, August 06, 2016 09:57 - CONCLUSION: No evidence of flow-limiting carotid stenosis. Jonathon Mckenzie MD Objective Remarks The left upper extremity has now been placed into a sugar tong splint. She has brisk capillary refill of the fingers. The O2 monitor has said 96% from one of the fingers on the left hand. There is mild swelling. She moves the fingers fairly well. No drainage on the splint is noted. Assessment & Plan Assessment and Plan Left arm mild displaced distal ulnar shaft fracture. Nonoperative management for this condition. She has been stabilized in a sugar tong splint now. Follow up with Dr. Rowell as outpatient in 1 week to repeat x-rays to confirm no further displacement. Call me if there is any other problems while the patient is an inpatient. Anish Rowell MD August 06, 2016 16:09
[2016-08-06] MEDS: MAGNESIUM HYDROXIDE SUSP 30 ML CUP PO SCH (20:25)
[2016-08-06] MEDS: DONEPEZIL HCL 5 MG TAB PO SCH (22:18)
[2016-08-06] MEDS: ATORVASTATIN 20 MG TAB PO SCH (22:19)
[2016-08-06] MEDS: QUEtiapine FUMARATE 25 MG TAB PO SCH (22:19)
[2016-08-06] MEDS: SERTRALINE HCL 50 MG TAB PO SCH (22:25)
[2016-08-06] MEDS: SODIUM CHLOR 0.9% 1000 ML INJ 1,000 ML IV SCH (22:26)
[2016-08-07] VITALS: BP 180/77; PULSE 69; RESP 20; TEMP 96.8; O2SAT 92
[2016-08-07 04:00] VITALS: BP 173/71; PULSE 75; RESP 18; TEMP 98; O2SAT 96
[2016-08-07 06:13] LABS: AUTOMATED NEUTROPHIL # 4.8 TH/MM3 (1.8-7.7); BASOPHIL % 0.2 % (0.0-2.0); EOSINOPHIL # 0.1 TH/MM3 (0-0.4); EOSINOPHIL % 1.5 % (0.0-4.0); HEMATOCRIT 36.8 % (35.0-46.0); HEMO FLAGS DIFF FINAL; LYMPH % 22.3 % (9.0-44.0); LYMPHOCYTE # 1.6 TH/MM3 (1.0-4.8); MEAN CORPUSCULAR HGB CONC 34.9 % (32.0-36.0); MONO % 8.7 % (0.0-8.0); NEUT % 67.3 % (16.0-70.0); PLATELET COUNT 159 TH/MM3 (150-450); RED BLOOD COUNT 4.13 MIL/MM3 (4.00-5.30); RED CELL DISTRIBUTION WIDTH 13.6 % (11.6-17.2); WHITE BLOOD COUNT 7.1 TH/MM3 (4.0-11.0)
[2016-08-07] MEDS: LOSARTAN 50 MG TAB PO SCH ×3 (06:19→20:36)
[2016-08-07 06:36] LABS: ALKALINE PHOSPHATASE 88 U/L (45-117); ALT (GPT) 15 U/L (10-53); ANION GAP 6 MEQ/L (5-15); AST (GOT) 11 U/L (15-37); BICARBONATE 28.8 MEQ/L (21.0-32.0); BLOOD UREA NITROGEN 10 MG/DL (7-18); CHLORIDE 103 MEQ/L (98-107); GLOMERULAR FILTRATION RATE 66 ML/MIN (>89); POTASSIUM 3.9 MEQ/L (3.5-5.1); SODIUM (NA) 138 MEQ/L (136-145); TOTAL BILIRUBIN ADULT 0.5 MG/DL (0.2-1.0)
[2016-08-07 08:22] VITALS: BP 162/72; PULSE 75; RESP 18; TEMP 97.4; O2SAT 97
[2016-08-07] MEDS: SODIUM CHLORIDE 0.9% FLUSH 10 ML FLUSH IV FLUSH SCH ×2 (09:00→20:35)
[2016-08-07] MEDS: CYANOCOBALAMIN 1,000 MCG TAB PO SCH (09:35)
[2016-08-07] MEDS: LORazepam 0.5 MG TAB PO SCH ×2 (09:35→20:36)
[2016-08-07] MEDS: DOCUSATE SODIUM 100 MG CAP PO SCH (09:35)
[2016-08-07] MEDS: SERTRALINE HCL 50 MG TAB PO SCH ×2 (09:37→20:36)
[2016-08-07] MEDS ORDERED: DEXTROSE 50% IN WATER 50 ML VIAL(D50) IV PUSH PRN (12:15)
[2016-08-07] MEDS ORDERED: GLUCAGON 1 MG/ML VIAL OTHER PRN (12:15)
--- NOTE | 2016-08-07 12:15 | HHI.PR ---
Subjective Subjective Notes Pain controlled RN reports patient got OOB to BS with 2 person assist Objective Vitals/I&O Vital Signs Date Time Temp Pulse Resp B/P Pulse Ox O2 Delivery O2 Flow Rate FiO2 08/07/16 08:22 97.4 75 18 162/72 97 08/06/16 20:00 Room Air 08/05/16 21:12 21 Labs Laboratory Tests Test 08/07/16 06:00 White Blood Count 7.1 Red Blood Count 4.13 Hemoglobin 12.8 Hematocrit 36.8 Mean Corpuscular Volume 89.0 Mean Corpuscular Hemoglobin 31.0 Mean Corpuscular Hemoglobin 34.9 Concent Red Cell Distribution Width 13.6 Platelet Count 159 Mean Platelet Volume 8.6 Neutrophils (%) (Auto) 67.3 Lymphocytes (%) (Auto) 22.3 Monocytes (%) (Auto) 8.7 Eosinophils (%) (Auto) 1.5 Basophils (%) (Auto) 0.2 Neutrophils # (Auto) 4.8 Lymphocytes # (Auto) 1.6 Monocytes # (Auto) 0.6 Eosinophils # (Auto) 0.1 Basophils # (Auto) 0.0 CBC Comment DIFF FINAL Differential Comment Sodium Level 138 Potassium Level 3.9 Chloride Level 103 Carbon Dioxide Level 28.8 Anion Gap 6 Blood Urea Nitrogen 10 Creatinine 0.83 Estimat Glomerular Filtration 66 Rate Random Glucose 190 Calcium Level 8.9 Total Bilirubin 0.5 Aspartate Amino Transf 11 (AST/SGOT) Alanine Aminotransferase 15 (ALT/SGPT) Alkaline Phosphatase 88 Total Protein 6.8 Albumin 3.2 Radiology Last Impressions Carotid Artery Ultrasound 08/06/16 0000 Signed Impressions: Service Date/Time: Saturday, August 06, 2016 09:57 - CONCLUSION: No evidence of flow-limiting carotid stenosis. Jonathon Mckenzie MD Wrist X-Ray 08/05/16 0000 Signed Impressions: Service Date/Time: Friday, August 05, 2016 15:26 - CONCLUSION: Distal ulnar fracture. Toan Jaime Jr., MD Maxillofacial CT 08/05/16 0000 Signed Impressions: Service Date/Time: Friday, August 05, 2016 11:26 - CONCLUSION: 1. Left temporal and frontal soft tissue hematoma. No fractures. Toan Jaime Jr., MD Head CT 08/05/16 0000 Signed Impressions: Service Date/Time: Friday, August 05, 2016 11:24 - CONCLUSION: 1. Focal acute, probable posttraumatic, subarachnoid hemorrhage within the right frontal sulci without midline shift. 2. 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 3. Mild periventricular and subcortical white matter small vessel ischemic changes bilaterally. 4. Old right basal ganglia lacunar infarct. 5. Large left frontal subgaleal hematoma. Tyler Evans MD Cervical Spine CT 08/05/16 0000 Signed Impressions: Service Date/Time: Friday, August 05, 2016 12:10 - CONCLUSION: 1. No acute abnormality. 2. Degenerative changes as detailed above. 3. Carotid artery atherosclerotic calcifications. Toan Jaime Jr., MD Narrative Exam GENERAL: 80-year-old female lying in bed. SKIN: Warm and dry. LEFT periorbital edema and ecchymosis noted. HEAD: Normocephalic. ENT: No nasal bleeding or discharge. Mucous membranes pink and moist. NECK: Trachea midline. No JVD. CARDIOVASCULAR: Regular rate and rhythm. RESPIRATORY: No accessory muscle use. Lungs are clear to auscultation. Breath sounds equal bilaterally. GASTROINTESTINAL: Abdomen soft, non-tender, nondistended. + BS. MUSCULOSKELETAL: Extremities without cyanosis, or edema. + peripheral pulses x 4 extremities. Warm with good capillary refill and sensation. MAEW. NEUROLOGICAL: Resting with eyes closed, arouses to voice. Normal speech and pattern. A/P Assessment and Plan INJURIES: LEFT scalp hematoma RIGHT frontal SAH LEFT distal ulnar fx (non-op) PMHx: dementia, DM, HTN Diet: 1800 ADA diet, tolerating Pulm: IS, encouraged patient use Pain: Percocet. Pain controlled Activity: OOB. PT and OT evaluating. GI: Protonix Bowel: Kassy-colace. MOM. No BM yet. DVT: SCD's -Hypoglycemia, Hx DM low dose SSI Accu checks AC, HS - SAH Neurosurgery following serial neuro checks -LEFT distal ulnar fx Orthopedics following non-operative management NWB LUE Maintain splint Case management consulted and assisting with discharge planning. For patient to return to SNF upon discharge. Plan of care discussed with RN at bedside. Remarks seen and examined with GAS DISTRIBUTION SUPERVISOR agree with assessment and plan resting comfortably tolerating diet dispo planning Janice Curry August 07, 2016 12:15 Denia Viera MD August 07, 2016 13:50
[2016-08-07 12:22] VITALS: BP 153/67; PULSE 71; RESP 17; TEMP 98; O2SAT 94
[2016-08-07] MEDS: PANTOPRAZOLE SOD 40 MG DELAYED RELEASE TAB PO SCH (15:10)
[2016-08-07 16:57] VITALS: BP 153/67; PULSE 76; RESP 17; TEMP 98.2; O2SAT 93
--- NOTE | 2016-08-07 17:13 | HHI.NSPN ---
(Kevon Milian) History Chief Complaint: Mild TBI. Pt with no complaints. (Kevon Milian) Interval History This is a 80-year-old lady with dementia who resides in a custodial. Apparently, she fell at the custodial early this morning and was found to have a large periorbital and subgaleal hematoma, ecchymosis and swelling. She was also very hypoglycemic with initial blood sugars noted at 38 and received D50. She does have a history of diabetes also. The trauma workup included CT scan of the head which reveals a small right frontal lobe contusion as well as some overlying convexity traumatic subarachnoid hemorrhage. There is no mass effect or midline shift noted. There are old infarcts involving the left cerebellar hemisphere, right left frontal lobe, left temporal lobe and right frontal lobe. CT of the cervical spine does not reveal any fractures, although atherosclerotic carotid calcifications are noted. Maxillofacial CT scan also does not reveal any fractures. She does have a distal left ulna fracture noted on the wrist x-ray. She is awake and the main complaint is left wrist pain but no other specific complaints. 08/06/16: Pt awake and alert. Denies headache. No nausea or vomiting. Follows commands well. Speech clear and appropriate. 08/07/16: Patient is awake alert. She denies any headaches nausea vomiting or muscle weakness. (Kevon Milian) Review of Systems General: Negative for: fever, chills, insomnia Respiratory: Negative for: shortness of breath, cough, sputum Cardiovascular: Negative for: chest pain Gastrointestinal: Negative for: nausea, vomitting, diarrhea, constipation ( Kevon Milian) Exam Results Vital Signs Date Time Temp Pulse Resp B/P Pulse Ox O2 Delivery O2 Flow Rate FiO2 08/07/16 16:57 98.2 76 17 153/67 93 08/07/16 10:00 Room Air 08/05/16 21:12 21 Intake and Output 08/06/16 08/06/16 08/07/16 08:00 16:00 00:00 Intake Total 650 ml 758 ml 180 ml Balance 650 ml 758 ml 180 ml (Kevon Milian) Physical Examination Resp: CTA bilaterally Heart: NSR no murmurs Abd: Soft positive bs Skin: Left forehead soft tissue swelling and left periorbital ecchymosis. Muscle: Moves all 4 extremities. Left forearm in splint and bandaged. Neuro: Pt awake and alert. Follows commands well. Speech clear and appropriate. Pupils 3mm bilaterally. (Kevon Milian) Lab, Micro, Other Results Last Impressions Carotid Artery Ultrasound 08/06/16 0000 Signed Impressions: Service Date/Time: Saturday, August 06, 2016 09:57 - CONCLUSION: No evidence of flow-limiting carotid stenosis. Jonathon Mckenzie MD Wrist X-Ray 08/05/16 Signed Impressions: Service Date/Time: Friday, August 05, 2016 15:26 - CONCLUSION: Distal ulnar fracture. Toan Jaime Jr., MD Maxillofacial CT 08/05/16 Signed Impressions: Service Date/Time: Friday, August 05, 2016 11:26 - CONCLUSION: 1. Left temporal and frontal soft tissue hematoma. No fractures. Toan Jaime Jr., MD Head CT 08/05/16 0000 Signed Impressions: Service Date/Time: Friday, August 05, 2016 11:24 - CONCLUSION: 1. Focal acute, probable posttraumatic, subarachnoid hemorrhage within the right frontal sulci without midline shift. 2. 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 3. Mild periventricular and subcortical white matter small vessel ischemic changes bilaterally. 4. Old right basal ganglia lacunar infarct. 5. Large left frontal subgaleal hematoma. Tyler Evans MD Cervical Spine CT 08/05/16 0000 Signed Impressions: Service Date/Time: Friday, August 05, 2016 12:10 - CONCLUSION: 1. No acute abnormality. 2. Degenerative changes as detailed above. 3. Carotid artery atherosclerotic calcifications. Toan Jaime Jr., MD Laboratory Tests Test 08/07/16 06:00 White Blood Count 7.1 TH/MM3 Red Blood Count 4.13 MIL/MM3 Hemoglobin 12.8 GM/DL Hematocrit 36.8 % Mean Corpuscular Volume 89.0 FL Mean Corpuscular Hemoglobin 31.0 PG Mean Corpuscular Hemoglobin 34.9 % Concent Red Cell Distribution Width 13.6 % Platelet Count 159 TH/MM3 Mean Platelet Volume 8.6 FL Neutrophils (%) (Auto) 67.3 % Lymphocytes (%) (Auto) 22.3 % Monocytes (%) (Auto) 8.7 % Eosinophils (%) (Auto) 1.5 % Basophils (%) (Auto) 0.2 % Neutrophils # (Auto) 4.8 TH/MM3 Lymphocytes # (Auto) 1.6 TH/MM3 Monocytes # (Auto) 0.6 TH/MM3 Eosinophils # (Auto) 0.1 TH/MM3 Basophils # (Auto) 0.0 TH/MM3 CBC Comment DIFF FINAL Differential Comment Sodium Level 138 MEQ/L Potassium Level 3.9 MEQ/L Chloride Level 103 MEQ/L Carbon Dioxide Level 28.8 MEQ/L Anion Gap 6 MEQ/L Blood Urea Nitrogen 10 MG/DL Creatinine 0.83 MG/DL Estimat Glomerular Filtration 66 ML/MIN Rate Random Glucose 190 MG/DL Calcium Level 8.9 MG/DL Total Bilirubin 0.5 MG/DL Aspartate Amino Transf 11 U/L (AST/SGOT) Alanine Aminotransferase 15 U/L (ALT/SGPT) Alkaline Phosphatase 88 U/L Total Protein 6.8 GM/DL Albumin 3.2 GM/DL 08/06/16 08/06/16 08/07/16 15:00 23:00 07:00 Intake Total 518 ml 420 ml Balance 518 ml 420 ml Intake Oral 420 ml 420 ml IV Total 98 ml # Voids 2 1 4 # Bowel Movements 1 1 (Kevon Milian) Medical Decision Making Impression and Plan A: 80 y/o FM with mild traumatic brain injury with right frontal small contusions along with traumatic subarachnoid hemorrhage. 2. Multiple areas of stroke which are chronic. 3. Left distal ulnar fracture. 4. Dementia. 5. Hypertension 6. Diabetes mellitus. PLAN Continue to monitor neuro exam, doing well. Advance activity rehab placement (Kevon Milian) Attending Statement The exam, history, and the medical decision-making described in the above note were completed with the assistance of the mid-level provider. I reviewed and agree with the findings presented. I attest that I had a [id number] encounter with the patient on the same day, and personally performed and documented my assessment and findings in the medical record. Stable for discharge from a neurosurgical standpoint. (Hardik Estrada MD) Kevon Milian August 07, 2016 17:13 Hardik Estrada MD August 07, 2016 18:56
[2016-08-07] MEDS: INSULIN NovoLIN REGULAR SUPPLEMENTAL SCALE SQ SCH ×2 (17:17→21:03)
[2016-08-07 20:00] VITALS: BP 138/63; PULSE 69; RESP 18; TEMP 97; O2SAT 95
[2016-08-07] MEDS: DOCUSATE SODIUM 50 MG/SENNA 8.6 MG TAB PO SCH (20:35)
[2016-08-07] MEDS: ATORVASTATIN 20 MG TAB PO SCH (20:35)
[2016-08-07] MEDS: DONEPEZIL HCL 5 MG TAB PO SCH (20:36)
[2016-08-07] MEDS: MAGNESIUM HYDROXIDE SUSP 30 ML CUP PO SCH (20:36)
[2016-08-07] MEDS: QUEtiapine FUMARATE 25 MG TAB PO SCH (20:36)
[2016-08-08] VITALS (7 sets, daily range): BP systolic 107–172; BP diastolic 55–89; PULSE 66–95; RESP 16–18; TEMP 97.2–99.1; O2SAT 92–97
[2016-08-08] MEDS: INSULIN NovoLIN REGULAR SUPPLEMENTAL SCALE SQ SCH ×4 (06:44→20:37)
[2016-08-08] MEDS: LOSARTAN 50 MG TAB PO SCH ×3 (09:00→20:17)
[2016-08-08] MEDS: LORazepam 0.5 MG TAB PO SCH ×2 (09:12→20:17)
[2016-08-08] MEDS: SERTRALINE HCL 50 MG TAB PO SCH ×2 (09:12→20:17)
[2016-08-08] MEDS: SODIUM CHLORIDE 0.9% FLUSH 10 ML FLUSH IV FLUSH SCH ×2 (09:12→20:17)
[2016-08-08] MEDS: DOCUSATE SODIUM 50 MG/SENNA 8.6 MG TAB PO SCH ×2 (09:13→20:16)
[2016-08-08] MEDS: CYANOCOBALAMIN 1,000 MCG TAB PO SCH (09:13)
--- NOTE | 2016-08-08 12:21 | HHI.PR ---
Subjective Subjective Notes Denies nausea, vomiting Denies pain Objective Vitals/I&O Vital Signs Date Time Temp Pulse Resp B/P Pulse Ox O2 Delivery O2 Flow Rate FiO2 08/08/16 08:33 97.5 69 18 172/73 94 08/08/16 02:58 Room Air 08/05/16 21:12 21 Radiology Last Impressions Carotid Artery Ultrasound 08/06/16 0000 Signed Impressions: Service Date/Time: Saturday, August 06, 2016 09:57 - CONCLUSION: No evidence of flow-limiting carotid stenosis. Jonathon Mckenzie MD Wrist X-Ray 08/05/16 0000 Signed Impressions: Service Date/Time: Friday, August 05, 2016 15:26 - CONCLUSION: Distal ulnar fracture. Toan Jaime Jr., MD Maxillofacial CT 08/05/16 0000 Signed Impressions: Service Date/Time: Friday, August 05, 2016 11:26 - CONCLUSION: 1. Left temporal and frontal soft tissue hematoma. No fractures. Toan Jaime Jr., MD Head CT 08/05/16 0000 Signed Impressions: Service Date/Time: Friday, August 05, 2016 11:24 - CONCLUSION: 1. Focal acute, probable posttraumatic, subarachnoid hemorrhage within the right frontal sulci without midline shift. 2. 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 3. Mild periventricular and subcortical white matter small vessel ischemic changes bilaterally. 4. Old right basal ganglia lacunar infarct. 5. Large left frontal subgaleal hematoma. Tyler Evans MD Cervical Spine CT 08/05/16 0000 Signed Impressions: Service Date/Time: Friday, August 05, 2016 12:10 - CONCLUSION: 1. No acute abnormality. 2. Degenerative changes as detailed above. 3. Carotid artery atherosclerotic calcifications. Toan Jaime Jr., MD Narrative Exam GENERAL: 80-year-old female OOB in chair. SKIN: Warm and dry. LEFT periorbital hematoma and ecchymosis noted. HEAD: Normocephalic. ENT: No nasal bleeding or discharge. Mucous membranes pink and moist. NECK: Trachea midline. No JVD. CARDIOVASCULAR: Regular rate and rhythm. RESPIRATORY: No accessory muscle use. Lungs are clear to auscultation. Breath sounds equal bilaterally. GASTROINTESTINAL: Abdomen soft, non-tender, nondistended. + BS. MUSCULOSKELETAL: Extremities without cyanosis, or edema. + peripheral pulses x 4 extremities. Warm with good capillary refill and sensation. MAEW. NEUROLOGICAL: Awake and alert. Normal speech and pattern. A/P Assessment and Plan INJURIES: LEFT scalp hematoma RIGHT frontal SAH LEFT distal ulnar fx (non-op) PMHx: dementia, DM, HTN Diet: 1800 ADA diet, tolerating Pulm: IS, encouraged patient use Pain: Percocet. Pain controlled Activity: OOB. PT and OT evaluating. (LILIAN RIBEIRO) GI: Protonix Bowel: Kassy-colace. MOM. LBM 08/08 DVT: SCD's -Hypoglycemia, Hx DM low dose SSI Accu checks AC, HS - SAH Neurosurgery following serial neuro checks -LEFT distal ulnar fx Orthopedics following Non-operative management LILIAN RIBEIRO Maintain splint Case management consulted and assisting with discharge planning. Plan for patient to be discharged to SNF or [facility] when cleared by neurosurgery. Plan of care discussed with patient at bedside. Janice Curry August 08, 2016 12:21 Janice Curry August 08, 2016 12:21
[2016-08-08] MEDS: PANTOPRAZOLE SOD 40 MG DELAYED RELEASE TAB PO SCH (13:56)
[2016-08-08] MEDS: MAGNESIUM HYDROXIDE SUSP 30 ML CUP PO SCH (20:16)
[2016-08-08] MEDS: DONEPEZIL HCL 5 MG TAB PO SCH (20:16)
[2016-08-08] MEDS: QUEtiapine FUMARATE 25 MG TAB PO SCH (20:16)
[2016-08-08] MEDS: ATORVASTATIN 20 MG TAB PO SCH (20:17)
[2016-08-09 00:12] VITALS: BP 134/60; PULSE 71; RESP 16; TEMP 99.6; O2SAT 96
[2016-08-09 05:39] VITALS: BP 147/65; PULSE 68; RESP 16; TEMP 97.8; O2SAT 94
[2016-08-09] MEDS: INSULIN NovoLIN REGULAR SUPPLEMENTAL SCALE SQ SCH ×2 (06:16→12:33)
[2016-08-09 08:00] VITALS: BP 147/66; PULSE 61; RESP 20; TEMP 96.6; O2SAT 92
[2016-08-09] MEDS: CYANOCOBALAMIN 1,000 MCG TAB PO SCH (08:45)
[2016-08-09] MEDS: SODIUM CHLORIDE 0.9% FLUSH 10 ML FLUSH IV FLUSH SCH (08:45)
[2016-08-09] MEDS: DOCUSATE SODIUM 50 MG/SENNA 8.6 MG TAB PO SCH (08:45)
[2016-08-09] MEDS: LORazepam 0.5 MG TAB PO SCH (08:45)
[2016-08-09] MEDS: SERTRALINE HCL 50 MG TAB PO SCH (08:47)
[2016-08-09] MEDS: LOSARTAN 50 MG TAB PO SCH ×2 (08:51→09:00)
[2016-08-09 12:00] VITALS: BP_SYST 113; BP_SYST 149; BP_DIAS 67; PULSE 63; PULSE 67; RESP 20; TEMP 97.3; TEMP 97.6; O2SAT 93; O2SAT 97
[2016-08-09] MEDS: PANTOPRAZOLE SOD 40 MG DELAYED RELEASE TAB PO SCH (12:33)
--- NOTE | 2016-08-09 13:35 | HHI.DS ---
Discharge Summary Admission Date August 05, 2016 at 12:51 Discharge Date: August 09, 2016 Admitting Diagnosis subarachnoid hemorrhage, hypoglycemia (1) Subarachnoid hemorrhage (2) Hypoglycemia (3) Left ulnar fracture Brief History S/P Trauma: Fall CBC/BMP: 08/07/16 0600 08/07/16 0600 Significant Findings Laboratory Tests Test 08/07/16 06:00 Monocytes (%) (Auto) 8.7 % (0.0-8.0) Estimat Glomerular Filtration 66 ML/MIN (>89) Rate Random Glucose 190 MG/DL (74-106) Aspartate Amino Transf 11 U/L (15-37) (AST/SGOT) Albumin 3.2 GM/DL (3.4-5.0) Imaging Last Impressions Carotid Artery Ultrasound 08/06/16 0000 Signed Impressions: Service Date/Time: Saturday, August 06, 2016 09:57 - CONCLUSION: No evidence of flow-limiting carotid stenosis. Jonathon Mckenzie MD Wrist X-Ray 08/05/16 0000 Signed Impressions: Service Date/Time: Friday, August 05, 2016 15:26 - CONCLUSION: Distal ulnar fracture. Toan Jaime Jr., MD Maxillofacial CT 08/05/16 0000 Signed Impressions: Service Date/Time: Friday, August 05, 2016 11:26 - CONCLUSION: 1. Left temporal and frontal soft tissue hematoma. No fractures. Toan Jaime Jr., MD Head CT 08/05/16 0000 Signed Impressions: Service Date/Time: Friday, August 05, 2016 11:24 - CONCLUSION: 1. Focal acute, probable posttraumatic, subarachnoid hemorrhage within the right frontal sulci without midline shift. 2. 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 3. Mild periventricular and subcortical white matter small vessel ischemic changes bilaterally. 4. Old right basal ganglia lacunar infarct. 5. Large left frontal subgaleal hematoma. Tyler Evans MD Cervical Spine CT 08/05/16 0000 Signed Impressions: Service Date/Time: Friday, August 05, 2016 12:10 - CONCLUSION: 1. No acute abnormality. 2. Degenerative changes as detailed above. 3. Carotid artery atherosclerotic calcifications. Toan Jaime Jr., MD PE at Discharge GENERAL: 80-year-old female OOB in chair. SKIN: Warm and dry. LEFT periorbital hematoma and ecchymosis noted. HEAD: Normocephalic. ENT: No nasal bleeding or discharge. Mucous membranes pink and moist. NECK: Trachea midline. No JVD. CARDIOVASCULAR: Regular rate and rhythm. RESPIRATORY: No accessory muscle use. Lungs are clear to auscultation. Breath sounds equal bilaterally. GASTROINTESTINAL: Abdomen soft, non-tender, nondistended. + BS. MUSCULOSKELETAL: Extremities without cyanosis, or edema. + peripheral pulses x 4 extremities. Warm with good capillary refill and sensation. MAEW. NEUROLOGICAL: Awake and alert. Normal speech and pattern. Hospital Course [place]: Fall. Found on the floor of the retirement. Scalp hematoma and BGM=30. INJURIES: LEFT scalp hematoma RIGHT frontal SAH LEFT distal ulnar fx (non-op) PMHx: dementia, DM, HTN Diet: 1800 ADA diet, tolerating Pulm: IS, encouraged patient use Pain: Percocet. Pain controlled Activity: OOB. PT and OT evaluating. ([facility]) GI: Protonix Bowel: Kassy-colace. MOM. LBM 5/5 DVT: SCD's -Hypoglycemia, Hx DM low dose SSI DC home Lantus Accu checks AC, HS - SAH Neurosurgery cleared for discharge F/U CT Brain stable Nonoperative management F/U as outpatient -LEFT distal ulnar fx Orthopedics cleared for discharge Non-operative management NWB QUINTIN Maintain splint, keep clean and dry F/U as outpatient Patient is clear from trauma surgery standpoint to safely discharge to [facility]. Plan of care discussed with patient's daughter via telephone. She is agreeable for patient to go to [facility]. Pt Condition on Discharge: Stable Discharge Disposition: Rehab Inpatient Discharge Instructions DIET: Follow Instructions for: Diabetic Diet Activities you can perform: Non Weight Bearing Other Activity Instructions: Nonweight bearing to left arm Janice Curry August 09, 2016 13:35
[2016-08-15] MEDS ORDERED: PLATMIS3 (07:50)
[2016-08-22] MEDS ORDERED: AMLO10 PO (08:22)
[2016-08-22] MEDS ORDERED: DONE5TAB7 PO (08:22)
[2016-08-22] MEDS ORDERED: ZOLO50TA PO (08:22)
[2016-08-22] MEDS ORDERED: LORA-392 PO (08:22)
[2016-08-22] MEDS ORDERED: LOSA100T PO (08:22)
[2016-08-22] MEDS ORDERED: ATOR20TA15 PO (08:22)
[2016-08-22] MEDS ORDERED: SERO100T PO (08:22)
[2016-08-22] MEDS ORDERED: METF500 PO (08:22)
[2016-08-22] MEDS ORDERED: VITA10002 PO (08:22)
== END 2016-08-09 14:17 | DRG 83 ==
LOC: NEPC 10:25 → NEDH 12:51 → N03B 16:31 → N05A 08-06 20:11
PROVIDERS: ADMIT Surgery; ATTEND Surgery
DX: S06.6X9A Traumatic subarachnoid hemorrhage with loss of consciousness of unspecified duration, initial encounter (principal); S06.369A Traumatic hemorrhage of cerebrum, unspecified, with loss of consciousness of unspecified duration, initial encounter; S52.602A Unspecified fracture of lower end of left ulna, initial encounter for closed fracture; W18.30XA Fall on same level, unspecified, initial encounter; F03.90 Unspecified dementia, unspecified severity, without behavioral disturbance, psychotic disturbance, mood disturbance, and anxiety; E11.649 Type 2 diabetes mellitus with hypoglycemia without coma; Z79.84 Long term (current) use of oral hypoglycemic drugs; Z79.4 Long term (current) use of insulin; Z86.73 Personal history of transient ischemic attack (TIA), and cerebral infarction without residual deficits; I10 Essential (primary) hypertension; E78.5 Hyperlipidemia, unspecified; M19.90 Unspecified osteoarthritis, unspecified site; Z79.02 Long term (current) use of antithrombotics/antiplatelets; Z79.82 Long term (current) use of aspirin; R40.2412 Glasgow coma scale score 13-15, at arrival to emergency department; Z87.891 Personal history of nicotine dependence
CPT/HCPCS: 70450; 70486; 72125; 73110; 80048; 80053; 82948; 85025; 87641; 93005; 93880; 94150; J7030; J7042